=== PATIENT | female | born 1990 | race Hispanic/Latino ===

== ENCOUNTER 2017-05-16 18:29 | Emergency (ER) | payer SELFPAY ==
--- NOTE | 2017-05-16 18:51 | Emergency Department Report ---
Chief Complaint: Weakness Stated Complaint: WEAKNESS - HPI History of Present Illness: 27-year-old female past medical history HIV AIDS, cervical cancer, smoker, substance abuse, bipolar disorder presents with complaint of worsening generalized weakness for one week. Patient complaining of dizziness headache nausea cough dysuria and generalized weakness. Patient is awake alert and oriented 3. - ROS Review of Systems: Generalized weakness for one week worsening - Exam Vital Signs: Vital Signs 05/16/17 18:30 Temperature 97.8 F Pulse Rate 100 H Respiratory 20 Rate Blood Pressure 105/72 O2 Sat by Pulse 100 Oximetry Physical Exam: Patient has overall cachectic appearance, awake alert and oriented 3, heart S1- S2 MSE screening note: Focused history and physical exam performed. Due to findings the following was ordered: Screening Assessment/Plan/Differential Dx: Weakness in context of AIDS/HIV 1- This initial assessment/diagnostic orders/clinical plan/ treatment(s) is/are subject to change based on pt's health status, clinical progression and re- assessment by fellow clinical providers in the ED. Further treatment and workup at subsequent clinical provers discretion. Patient/guardians urged not to elope from ED as their condition may be serious if not clinically assessed and managed. 2-labs, strep test, chest x-ray, CT head, EKG, urinalysis 3-pt to be evaluated in the main ED 4-differentials include sepsis, viral syndrome, UTI, HIV/AIDS wasting/ complications ED Disposition for MSE Condition: Stable
[2017-05-16 20:03] LABS: Hematocrit 30.1 % (30.3-42.9); Hemoglobin 9.8 gm/dl (10.1-14.3); Mean Corpuscular HGB Conc 33 % (30-34); Mean Corpuscular Hemoglobin 28 pg (28-32); Mean Corpuscular Volume 86 fl (79-97); Platelet Count 179 K/mm3 (140-440); Red Blood Count 3.48 M/mm3 (3.65-5.03); Red Cell Distribution Width 16.4 % (13.2-15.2)
--- NOTE | 2017-05-16 20:09 | XRay Report ---
FINAL REPORT EXAM: XR CHEST ROUTINE 2V HISTORY: AIDS with cough ? PNA TECHNIQUE: PA and lateral views of the chest PRIORS: None. FINDINGS: Lines, tubes, and devices: N/A Lungs and pleura: Trachea is normal in position. Lungs are clear of infiltrate, pleural effusion, vascular congestion, or pneumothorax. Cardiomediastinal silhouette: Cardiac and mediastinal silhouettes are unremarkable. Other: Bony structures are intact. IMPRESSION: No acute cardiopulmonary process seen.
--- NOTE | 2017-05-16 20:11 | Cat Scan Report ---
FINAL REPORT EXAM: CT HEAD/BRAIN WO CON HISTORY: AIDS with headache TECHNIQUE: Standard unenhanced CT of the head at 5.0 millimeter axial increments. PRIORS: None. FINDINGS: The ventricular system is normal in size and configuration. There is no evidence for parenchymal volume loss. There is no evidence for mass lesion, mass effect, midline shift, acute intracranial hemorrhage, or acute ischemia/ infarction. No evidence for acute skull fracture is seen. No abnormality in the overlying scalp soft tissues is seen. Visualized paranasal sinuses are clear. IMPRESSION: Negative CT of the head. No acute intracranial process noted.
[2017-05-16 20:20] LABS: Alanine Aminotransferase 14 units/L (7-56)
[2017-05-16 20:21] LABS: BUN/Creatinine Ratio 20; Bilirubin,Direct < 0.2 mg/dL (0-0.2); Blood Urea Nitrogen 10 mg/dL (7-17); Calcium 8.5 mg/dL (8.4-10.2); Hemolysis Index 5
[2017-05-16 20:52] LABS: Basophils % (Manual) 0 % (0.0-1.8); Eosinophils % (Manual) 0 % (0.0-4.3); Total Cells Counted 100
[2017-05-16 20:53] LABS: Platelet Estimate Consistent w Auto
[2017-05-16 20:54] LABS: Anisocytosis 1+; Ovalocytes Few; Poikilocytosis 1+
[2017-05-17] MEDS ORDERED: K-DUR PO ONE (01:04)
[2017-05-17 01:08] VITALS: BP 100/65
[2017-05-17] MEDS ORDERED: TYLENOL ONE (01:15)
--- NOTE | 2017-05-17 01:18 | Emergency Department Report ---
ED General Adult HPI - General Chief complaint: Weakness Stated complaint: WEAKNESS Time Seen by Provider: 05/17/17 00:46 Source: patient, EMS (ems notes not available at time of chart dictation), RN notes reviewed Mode of arrival: Ambulatory Limitations: No Limitations - History of Present Illness Initial comments: This is a 27-year-old female. The patient is previously unknown to this provider. She endorses a past medical history of HIV/AIDS, with a CD4 count of less than 100. She does not on her viral load, and she is not compliant with highly active antiretroviral therapy. She also has a history of bipolar disorder and anemia. She presents to the ER with a complaint of generalized weakness, "feeling discombobulated." Patient also endorses a sensation of generalized weakness. Her symptoms are constant and they do not radiate anywhere, and he do not have exacerbating or relieving factors. The patient endorsed some dysuria to the physician day care assistant who saw her prior to my evaluation. Patient also complains of generalized body aches. Of note, patient noted to be playing on a telephone and on various social media apps while I interview her. -: Gradual Severity scale (0 -10): 8 Consistency: constant Improves with: none Worsens with: none Associated Symptoms: confusion, headaches, loss of appetite, malaise, weakness. denies: chest pain, cough, diaphoresis, fever/chills, nausea/vomiting, rash, seizure, shortness of breath, syncope - Related Data Allergies Allergy/AdvReac Type Severity Reaction Status Date / Time amoxicillin Allergy Rash Verified 05/16/17 18:30 naproxen [From Naprosyn] Allergy Rash Verified 05/16/17 18:46 ED Review of Systems ROS: Stated complaint: WEAKNESS Other details as noted in HPI ED Past Medical Hx - Past Medical History Previous Medical History?: Yes Hx of Cancer: Yes (cervix) Hx Psychiatric Treatment: Yes (Bipolar) Hx HIV: Yes Additional medical history: Anemia - Surgical History Past Surgical History?: Yes Hx Cholecystectomy: Yes Additional Surgical History: , Hysterectomy - Social History Smoking Status: Current Every Day Smoker Substance Use Type: Prescribed ED Physical Exam - General Limitations: No Limitations General appearance: alert, in no apparent distress - Head Head exam: Present: atraumatic, normocephalic - Eye Eye exam: Present: normal appearance, PERRL, EOMI, other (visual acuity intact to finger counting, color perception, reading at a close distance). Absent: nystagmus - ENT ENT exam: Present: normal orophraynx, mucous membranes moist, normal external ear exam. Absent: normal exam (patient has poor dentition) - Neck Neck exam: Present: normal inspection, full ROM - Respiratory Respiratory exam: Present: normal lung sounds bilaterally. Absent: respiratory distress - Cardiovascular Cardiovascular Exam: Present: regular rate, normal rhythm, normal heart sounds. Absent: bradycardia, tachycardia, irregular rhythm, systolic murmur, diastolic murmur, rubs, gallop - GI/Abdominal GI/Abdominal exam: Present: soft, normal bowel sounds. Absent: distended, tenderness, guarding, rebound, rigid, pulsatile mass - Extremities Exam Extremities exam: Present: normal inspection, full ROM, normal capillary refill , other (there is no long bony tenderness. The pelvis is stable). Absent: pedal edema, joint swelling, calf tenderness - Back Exam Back exam: Present: normal inspection, full ROM. Absent: paraspinal tenderness , vertebral tenderness - Neurological Exam Neurological exam: Present: alert, oriented X3, CN II-XII intact, normal gait, other (Extraocular movements intact. Tongue midline. No facial droop. Facial sensation intact to light touch in the V1, V2, V3 distribution bilaterally. 5 and 5 strength in 4 extremities.. Sensation is intact to light touch in 4 extremities.). Absent: motor sensory deficit - Psychiatric Psychiatric exam: Present: anxious - Skin Skin exam: Present: warm, dry, intact, normal color. Absent: rash ED Course Vital Signs 05/16/17 05/17/17 05/17/17 18:30 01:07 01:08 Temperature 97.8 F 98.5 F Pulse Rate 100 H 80 Respiratory 20 16 16 Rate Blood Pressure 105/72 Blood Pressure 100/65 [Left] O2 Sat by Pulse 100 98 98 Oximetry ED Medical Decision Making - Lab Data Result diagrams: 05/16/17 19:37 05/16/17 19:37 Vital Signs 05/16/17 05/17/17 05/17/17 18:30 01:07 01:08 Temperature 97.8 F 98.5 F Pulse Rate 100 H 80 Respiratory 20 16 16 Rate Blood Pressure 105/72 Blood Pressure 100/65 [Left] O2 Sat by Pulse 100 98 98 Oximetry Lab Results 05/16/17 05/16/17 05/16/17 Range/Units 18:40 19:37 19:37 WBC 2.0 L (4.5-11.0) K/mm3 RBC 3.48 L (3.65-5.03) M/mm3 Hgb 9.8 L (10.1-14.3) gm/dl Hct 30.1 L (30.3-42.9) % MCV 86 (79-97) fl MCH 28 (28-32) pg MCHC 33 (30-34) % RDW 16.4 H (13.2-15.2) % Plt Count 179 (140-440) K/mm3 Add Manual Diff Complete Total Counted 100 Seg Neuts % (Manual) 77.0 H (40.0-70.0) % Band Neutrophils % 0 % Lymphocytes % (Manual) 19.0 (13.4-35.0) % Reactive Lymphs % (Man) 0 % Monocytes % (Manual) 3.0 (0.0-7.3) % Eosinophils % (Manual) 0 (0.0-4.3) % Basophils % (Manual) 0 (0.0-1.8) % Metamyelocytes % 1.0 % Myelocytes % 0 % Promyelocytes % 0 % Blast Cells % 0 % Nucleated RBC % Not Reportable Seg Neutrophils # Man 1.5 L (1.8-7.7) K/mm3 Band Neutrophils # 0.0 K/mm3 Lymphocytes # (Manual) 0.4 L (1.2-5.4) K/mm3 Abs React Lymphs (Man) 0.0 K/mm3 Monocytes # (Manual) 0.1 (0.0-0.8) K/mm3 Eosinophils # (Manual) 0.0 (0.0-0.4) K/mm3 Basophils # (Manual) 0.0 (0.0-0.1) K/mm3 Metamyelocytes # 0.0 K/mm3 Myelocytes # 0.0 K/mm3 Promyelocytes # 0.0 K/mm3 Blast Cells # 0.0 K/mm3 WBC Morphology Not Reportable Hypersegmented Neuts Not Reportable Hyposegmented Neuts Not Reportable Hypogranular Neuts Not Reportable Smudge Cells Not Reportable Toxic Granulation Not Reportable Toxic Vacuolation Not Reportable Dohle Bodies Not Reportable Pelger-Huet Anomaly Not Reportable Blanca Rods Not Reportable Platelet Estimate Consistent w auto Clumped Platelets Not Reportable Plt Clumps, EDTA Not Reportable Large Platelets Not Reportable Giant Platelets Not Reportable Platelet Satelliting Not Reportable Plt Morphology Comment Not Reportable RBC Morphology Not Reportable Dimorphic RBCs Not Reportable Polychromasia Not Reportable Hypochromasia Not Reportable Poikilocytosis 1+ Anisocytosis 1+ Microcytosis Not Reportable Macrocytosis Not Reportable Spherocytes Not Reportable Pappenheimer Bodies Not Reportable Sickle Cells Not Reportable Target Cells Not Reportable Tear Drop Cells Not Reportable Ovalocytes Few Helmet Cells Not Reportable [place] Bodies Not Reportable [place] Rings Not Reportable [place] Cells Not Reportable Bite Cells Not Reportable Crenated Cell Not Reportable Elliptocytes 1+ Acanthocytes (Spur) Not Reportable Rouleaux Not Reportable Hemoglobin C Crystals Not Reportable Schistocytes Not Reportable Malaria parasites Not Reportable Jovany Bodies Not Reportable Hem Pathologist Commnt No Sodium 149 H (137-145) mmol/L Potassium 3.4 L (3.6-5.0) mmol/L Chloride 111.9 H (98-107) mmol/L Carbon Dioxide 23 (22-30) mmol/L Anion Gap 18 mmol/L BUN 10 (7-17) mg/dL Creatinine 0.5 L (0.7-1.2) mg/dL Estimated GFR > 60 ml/min BUN/Creatinine Ratio 20 % Glucose 90 (65-100) mg/dL Lactic Acid (0.7-2.0) mmol/L Calcium 8.5 (8.4-10.2) mg/dL Total Bilirubin (0.1-1.2) mg/dL Direct Bilirubin (0-0.2) mg/dL Indirect Bilirubin mg/dL AST (5-40) units/L ALT (7-56) units/L Alkaline Phosphatase (35-129) units/L Total Creatine Kinase 51 (30-135) units/L Total Protein (6.3-8.2) g/dL Albumin (3.9-5) g/dL Albumin/Globulin Ratio % Group A Strep Rapid Negative (Negative) 05/16/17 05/16/17 Range/Units 19:37 19:37 WBC (4.5-11.0) K/mm3 RBC (3.65-5.03) M/mm3 Hgb (10.1-14.3) gm/dl Hct (30.3-42.9) % MCV (79-97) fl MCH (28-32) pg MCHC (30-34) % RDW (13.2-15.2) % Plt Count (140-440) K/mm3 Add Manual Diff Total Counted Seg Neuts % (Manual) (40.0-70.0) % Band Neutrophils % % Lymphocytes % (Manual) (13.4-35.0) % Reactive Lymphs % (Man) % Monocytes % (Manual) (0.0-7.3) % Eosinophils % (Manual) (0.0-4.3) % Basophils % (Manual) (0.0-1.8) % Metamyelocytes % % Myelocytes % % Promyelocytes % % Blast Cells % % Nucleated RBC % Seg Neutrophils # Man (1.8-7.7) K/mm3 Band Neutrophils # K/mm3 Lymphocytes # (Manual) (1.2-5.4) K/mm3 Abs React Lymphs (Man) K/mm3 Monocytes # (Manual) (0.0-0.8) K/mm3 Eosinophils # (Manual) (0.0-0.4) K/mm3 Basophils # (Manual) (0.0-0.1) K/mm3 Metamyelocytes # K/mm3 Myelocytes # K/mm3 Promyelocytes # K/mm3 Blast Cells # K/mm3 WBC Morphology Hypersegmented Neuts Hyposegmented Neuts Hypogranular Neuts Smudge Cells Toxic Granulation Toxic Vacuolation Dohle Bodies Pelger-Huet Anomaly Blanca Rods Platelet Estimate Clumped Platelets Plt Clumps, EDTA Large Platelets Giant Platelets Platelet Satelliting Plt Morphology Comment RBC Morphology Dimorphic RBCs Polychromasia Hypochromasia Poikilocytosis Anisocytosis Microcytosis Macrocytosis Spherocytes Pappenheimer Bodies Sickle Cells Target Cells Tear Drop Cells Ovalocytes Helmet Cells Alarcon-[place] Bodies [place] Rings Remy Cells Bite Cells Crenated Cell Elliptocytes Acanthocytes (Spur) Rouleaux Hemoglobin C Crystals Schistocytes Malaria parasites Jovany Bodies Hem Pathologist Commnt Sodium (137-145) mmol/L Potassium (3.6-5.0) mmol/L Chloride (98-107) mmol/L Carbon Dioxide (22-30) mmol/L Anion Gap mmol/L BUN (7-17) mg/dL Creatinine (0.7-1.2) mg/dL Estimated GFR ml/min BUN/Creatinine Ratio % Glucose (65-100) mg/dL Lactic Acid 1.90 (0.7-2.0) mmol/L Calcium (8.4-10.2) mg/dL Total Bilirubin 0.20 (0.1-1.2) mg/dL Direct Bilirubin < 0.2 (0-0.2) mg/dL Indirect Bilirubin 0.0 mg/dL AST 25 (5-40) units/L ALT 14 (7-56) units/L Alkaline Phosphatase 81 (35-129) units/L Total Creatine Kinase (30-135) units/L Total Protein 7.4 (6.3-8.2) g/dL Albumin 4.0 (3.9-5) g/dL Albumin/Globulin Ratio 1.2 % Group A Strep Rapid (Negative) - EKG Data 05/17/17 01:16 Normal sinus, 82 bpm, normal intervals, normal axis, not morphologically consistent with ST elevation myocardial infarction. - Radiology Data Radiology results: report reviewed, image reviewed X-ray of the chest negative Noncontrast CT scan of the brain negative - Medical Decision Making Differential diagnosis, including not limited to: Pneumonia, urinary tract infection, HIV, AIDS, general debility, general medical evaluation Assessment and plan: 27-year-old female noncompliant with highly active antiretroviral therapy, with multiple nonspecific complaints. Objectively speaking, has a normal neurologic examination, walks with a steady gait, sensation intact to light touch, no clinical indication of epidural compression syndrome at this time, patient is afebrile, is somewhat leukopenic, based on her history and physical I am not concerned about bacteremia or occult sepsis. Blood cultures were sent prior to my evaluation but based on the patient's history and physical I think bacteremia is very unlikely, and I do not please she requires admission to the hospital for broad-spectrum IV antibiotics. Patient noted to be walking around the ER without difficulty, her vital signs remained stable in the ER for hours, there is no objective indication to do the patient to the hospital at this time, she'll need to follow up in outpatient primary care doctor and infectious disease specialist for her HIV. Critical care attestation.: If time is entered above; I have spent that time in minutes in the direct care of this critically ill patient, excluding procedure time. ED Disposition Clinical Impression: History of HIV infection Disposition: [id number] TO HOME OR SELFCARE Is pt being admited?: No Does the pt Need Aspirin: No Condition: Stable Additional Instructions: Cultures were sent today, results will be available next 3-5 days. Have your primary care doctor contact medical records department to obtain culture results. It is very important to follow-up as soon as possible with an outpatient infectious disease doctor for underlying HIV condition. Not following up as recommended and will likely result in worsening HIV status, which in turn caused disability, paralysis, loss of quality of life. Therefore , follow-up as soon as possible with any illicit outpatient infectious disease specialist. Emergency room is up in 24 hours a day 7 days a week and it never closes. Please return to the ER right away with new pain, worsening pain, migration of pain, fevers, chills, confusion, intractable nausea or vomiting, inability to tolerate liquid feeds. Referrals: GRAYSON GUEVARA MD [Primary Care Provider] - 3-5 Days JUDY STOREY MD [Staff Physician] - 3-5 Days ELISHA RICHARDSON MD [Staff Physician] - 3-5 Days [facility] [Provider Group] - 3-5 Days
[2017-05-17] MEDS ORDERED: TYLENOL PO ONE (01:20)
[2017-05-17 01:50] LABS: HCG Qualitative,Urine Negative (Negative)
[2017-05-17 02:02] LABS: Amorphous Crystals,Urine 2+; Bacteria,Urine 1+ /HPF (Negative); Bilirubin,Urine NEG (Negative); Blood,Urine NEG (Negative); Calcium Oxalate Crystals,Urine 3+; Color,Urine Yellow (Yellow); Mucus,Urine 2+ /HPF; Nitrite,Urine NEG (Negative)
== END 2017-05-17 02:22 | disposition home or self-care (01) ==
LOC: ED 18:29
DX: R53.1 Weakness (principal); R51 Headache; R63.0 Anorexia; F31.9 Bipolar disorder, unspecified; F17.200 Nicotine dependence, unspecified, uncomplicated; C53.9 Malignant neoplasm of cervix uteri, unspecified; Z90.710 Acquired absence of both cervix and uterus; Z86.2 Personal history of diseases of the blood and blood-forming organs and certain disorders involving the immune mechanism; Z90.49 Acquired absence of other specified parts of digestive tract; Z88.1 Allergy status to other antibiotic agents; Z88.6 Allergy status to analgesic agent
CPT/HCPCS: 36415; 70450; 71046; 80048; 80074; 81001; 81025; 82140; 82550; 85007; 85025; 87040; 87116; 87430; 93005; 93010